=== PATIENT | male | born 1980 | race Caucasian/White ===

== ENCOUNTER 2018-09-14 10:48 | Inpatient (IN) | payer OTHER ==
[2018-09-14] MEDS ORDERED: CLINDAMYCIN 600MG PREMIX IVPB 600 MG/50 ML BAG IVPB ONE ×2 (11:33→11:51)
[2018-09-14] MEDS ORDERED: SODIUM CHLORIDE 1,000 ML IV STA (11:33)
[2018-09-14 12:00] LABS: BASO % 0.7 % (0-2.0); EOS % 0.2 % (0-4.5); HEMATOCRIT 47.1 % (35.4-49); HEMOGLOBIN 15.7 GM/dL (11.7-16.9); LYMPH % 15.3 % (8-40); MCH 30.1 pg (25.7-33.7); MCHC 33.3 g/dl (32.0-35.9); MEAN CELL VOLUME 90.3 fl (80-96); MEAN PLT VOLUME 7.7 fl (7.5-11.1); MONO % 7.4 % (3.8-10.2); NEUT % 76.4 % (42.8-82.8); PLATELET COUNT 418 K/MM3 (134-434); RBC 5.21 M/mm3 (4.00-5.60); RDW 12.9 % (11.9-15.9); WHITE BLOOD COUNT 13.1 K/mm3 (4.0-10.0)
--- NOTE | 2018-09-14 12:07 | PDOC ---
History of Present Illness - General Chief Complaint: Injury Stated Complaint: PCP SENT/PRE OP Time Seen by Provider: 09/14/18 11:22 History Source: Patient - History of Present Illness Timing/Duration: reports: getting worse Abdominal Pain Onset Location: reports: other (groin) Past History - Past Medical History Allergies/Adverse Reactions: Allergies Allergy/AdvReac Type Severity Reaction Status Date / Time No Known Allergies Allergy Verified 09/14/18 11:01 Home Medications: Ambulatory Orders Acetaminophen [Tylenol] 650 mg PO QID PRN 09/14/18 Metformin HCl [Metformin HCl ER] 500 mg PO DAILY 09/14/18 COPD: No - Suicide/Smoking/Psychosocial Hx Smoking History: Current some day smoker Have you smoked in the past 12 months: Yes Number of Cigarettes Smoked Daily: 1 Information on smoking cessation initiated: No 'Breaking Loose' booklet given: 07/19/18 Hx Alcohol Use: No Drug/Substance Use Hx: No Substance Use Type: None Review of Systems - Review of Systems Constitutional: No: Chills, Fever, Malaise : Yes: Testicular Swelling, Testicular Pain. No: Dysuria, Discharge, Hematuria *Physical Exam - Vital Signs Last Vital Signs Temp Pulse Resp BP Pulse Ox 99.5 F 117 H 18 148/99 97 09/14/18 11:03 09/14/18 11:03 09/14/18 11:03 09/14/18 11:03 09/14/18 11:03 - Physical Exam General Appearance: Yes: Appropriately Dressed. No: Apparent Distress HEENT: positive: Normal Voice Neck: positive: Supple Respiratory/Chest: negative: Respiratory Distress Gastrointestinal/Abdominal: positive: Soft. negative: Tender Male Genitalia: positive: other (7x6 cm area of fluctucant induration w/ overlying erythema to L groin, possibly extending into L testes) Integumentary: positive: Dry, Warm Neurologic: positive: Fully Oriented, Alert, Normal Mood/Affect ED Treatment Course - LABORATORY CBC & Chemistry Diagram: 09/14/18 11:38 09/14/18 11:38 - ADDITIONAL ORDERS Additional order review: Laboratory Results 09/14/18 11:38 WBC 13.1 H RBC 5.21 Hgb 15.7 Hct 47.1 MCV 90.3 MCH 30.1 MCHC 33.3 RDW 12.9 Plt Count 418 D MPV 7.7 Absolute Neuts (auto) 10.0 H Neutrophils % 76.4 Lymphocytes % 15.3 Monocytes % 7.4 Eosinophils % 0.2 Basophils % 0.7 Nucleated RBC % 0 09/14/18 11:38 RBC 5.21 MCV 90.3 MCHC 33.3 RDW 12.9 MPV 7.7 Neutrophils % 76.4 Lymphocytes % 15.3 Monocytes % 7.4 Eosinophils % 0.2 Basophils % 0.7 - RADIOLOGY Radiology Studies Ordered: Category Date Time Status ABDOMEN & PELVIS CT WITH CONTR [CT] Stat CT Scan 09/14/18 11:33 Ordered SCROTUM AND CONTENTS US [US] Stat Ultrasound 09/14/18 11:29 Ordered - Medications Given in the ED: ED Medications Discontinued Medications Generic Name Dose Route Start Last Admin Trade Name Freq PRN Reason Stop Dose Admin Clindamycin Phosphate 600 mg in 50 mls @ 100 mls/hr 09/14/18 11:33 09/14/18 11:51 Cleocin 600 Mg Premix Ivpb - IVPB 09/14/18 12:02 100 mls/hr ONCE ONE Administration Protocol Medical Decision Making - Medical Decision Making 09/14/18 12:04 38-year-old male, obesity, [id number] diabetic, admitted for sepsis secondary to RUE cellulitis/abscess [address] [facility], was dx w/ DM then w/ HA1c of 9.9 per records, here with L groin pain and swelling s/ p injury. Patient states 4 days ago while playing sports another individual accidentally struck him in the groin with knee. States he had pain immediately but thought it would go away, so did not come into ED for evaluation. Since then, symptoms have worsened. Denies fever, chills or malaise see exam Cellulitis /abscess of L groin w/ possible involvement of L testes Unlikely torsion given duration and exam findings Tachy to 117 w/ large fluctuant induration to L groin 2/ overlying erythema, possibly extension into L testes -pain control -IVF -abx (of note, prior wound cx grew out MRSA-sen to clinda) -labs -UC -CT - v/s surgery c/s -admit 09/14/18 12:16 09/14/18 14:40 CT read as ~4 x 4 cm abscess to L groin. White count of 13. Case discussed with Dr. Hendrickson of , recommended ID consult and will see in-house *DC/Admit/Observation/Transfer Diagnosis at time of Disposition: Abscess of groin, left - Discharge Dispostion Condition at time of disposition: Fair Decision to Admit order: Yes - Referrals - Patient Instructions - Post Discharge Activity
[2018-09-14 12:14] LABS: URINE APPEARANCE CLEAR; URINE BILIRUBIN NEGATIVE (<2.0 mg/dL); URINE COLOR DKYELLOW; URINE GLUCOSE (UA) 2+ (NEGATIVE); URINE KETONE NEGATIVE (NEGATIVE); URINE LEUK ESTERASE NEGATIVE (NEGATIVE); URINE NITRITE NEGATIVE (NEGATIVE); URINE PROTEIN 1+ (NEGATIVE)
[2018-09-14] MEDS ORDERED: KETOROLAC TROMETHAMINE 30 MG/1 ML VIAL IVPUSH ONE (12:17)
[2018-09-14 12:25] LABS: ALK PHOS 140 U/L (45-117); ANION GAP 10 MMOL/L (8-16); BILIRUBIN,TOTAL 1.2 mg/dL (0.2-1); BLOOD UREA NITROGEN 6 mg/dL (7-18); CALCIUM 9.5 mg/dL (8.5-10.1); CHLORIDE 100 mmol/L (98-107); CO2 25 mmol/L (21-32); CREATININE 1.2 mg/dL (0.55-1.3); GLUCOSE,RANDOM 240 mg/dL (74-106); POTASSIUM 4.1 mmol/L (3.5-5.1); SGOT/AST 47 U/L (15-37); SGPT/ALT 54 U/L (13-61); SODIUM 136 mmol/L (136-145); TOT PROT 8.4 g/dl (6.4-8.2)
[2018-09-14 12:27] LABS: INR 1.18 (0.83-1.09); PROTHROMBIN TIME (PATIENT) 13.9 SEC (9.7-13.0)
[2018-09-14 12:54] LABS: EPI CELLS RARE /HPF (FEW); URINE HYALINE CAST 17 /lpf; URINE MUCUS FEW
[2018-09-14] MEDS ORDERED: KETOROLAC TROMETHAMINE 30 MG/1 ML VIAL ONE ×2 (14:13→18:32)
[2018-09-14] MEDS ORDERED: ACETAMINOPHEN 325 MG TABLET (FP) PO PRN (16:38)
--- NOTE | 2018-09-14 16:38 | HP ---
Admitting History and Physical - Primary Care Physician PCP: Karolina Linda - Admission Chief Complaint: LEFT INGUINAL ABSCESS History of Present Illness: 38 Y/O MALE HISTORY OF DIABETES WITH 3 DAYS OF LEFT INGUINAL PAIN AND ABSCESS WORSENING. DENIES TRAUMA History Source: Patient, Medical Record - Smoking History Smoking history: Current some day smoker Have you smoked in the past 12 months: Yes Aproximately how many cigarettes per day: 1 - Alcohol/Substance Use Hx Alcohol Use: No Home Medications - Allergies Allergies/Adverse Reactions: Allergies Allergy/AdvReac Type Severity Reaction Status Date / Time No Known Allergies Allergy Verified 09/14/18 11:01 - Home Medications Home Medications: Ambulatory Orders Acetaminophen [Tylenol] 650 mg PO QID PRN 09/14/18 Metformin HCl [Metformin HCl ER] 500 mg PO DAILY 09/14/18 Review of Systems - Review of Systems Constitutional: reports: No Symptoms Eyes: reports: No Symptoms HENT: reports: No Symptoms Neck: reports: No Symptoms Cardiovascular: reports: No Symptoms Respiratory: reports: No Symptoms Gastrointestinal: reports: No Symptoms Genitourinary: reports: Other (LEFT INGUINAL ABSCESS) Musculoskeletal: reports: No Symptoms Integumentary: reports: No Symptoms Neurological: reports: No Symptoms Endocrine: reports: No Symptoms Hematology/Lymphatic: reports: No Symptoms Psychiatric: reports: No Symptoms Physical Examination Vital Signs: Vital Signs Temperature 99.5 F 09/14/18 11:03 Pulse Rate 117 H 09/14/18 11:03 Respiratory Rate 18 09/14/18 11:03 Blood Pressure 148/99 09/14/18 11:03 O2 Sat by Pulse Oximetry (%) 97 09/14/18 11:03 Constitutional: Yes: Mild Distress Eyes: Yes: WNL HENT: Yes: WNL Neck: Yes: WNL Cardiovascular: Yes: WNL Respiratory: Yes: WNL Gastrointestinal: Yes: WNL Renal/: Yes: WNL Musculoskeletal: Yes: WNL Extremities: Yes: Other (LEFT GROIN ABSCESS) Edema: No Peripheral Pulses WNL: Yes Integumentary: Yes: WNL Wound/Incision: Yes: Dressing Dry and Intact Neurological: Yes: WNL ...Motor Strength: WNL Psychiatric: Yes: WNL Labs: CBC, BMP 09/14/18 11:38 09/14/18 11:38 Problem List - Problems (1) Abscess of groin, left Code(s): L02.214 - CUTANEOUS ABSCESS OF GROIN (2) Hyperglycemia due to type 2 diabetes mellitus Code(s): E11.65 - TYPE 2 DIABETES MELLITUS WITH HYPERGLYCEMIA (3) Obesity (BMI 30-39.9) Code(s): E66.9 - OBESITY, UNSPECIFIED Assessment/Plan IV ABX I AND D WITH ID CONSULT BGM CHECK WEIGHT LOSS AND EXERCISE
--- NOTE | 2018-09-14 17:56 | CONSULT ---
Consult - text type - Consultation Consultation Note: cc: left inguinal abscess hpi: patient with 3 day history of increasing left groin swelling with erythema. Denies trauma to area. The patient denies fever or chills. Patient with history of DM. PE: VSS;abfeb abd-soft, non tender genitalia- nl phallus and testes; left inguinal fluctuant mass imp left inguinal abscess plan antibiotics as per ID procedure note incision and drainage of left inguinal absess performed 50 cc of purulent drainage expressed from absess
[2018-09-14] MEDS: KETOROLAC TROMETHAMINE 30 MG/1 ML VIAL IVPUSH SCH (18:34)
[2018-09-14] MEDS ORDERED: VANCOMYCIN 1,500 MG in DEXTROSE 5%-WATER - 500 ML IVPB ONE (20:48)
[2018-09-14] MEDS ORDERED: PIPERACILLIN/TAZOBACTAM 3.375 GM VIAL IVPB ONE (20:58)
[2018-09-14] MEDS ORDERED: DEXTROSE 5%-WATER - 50 ML IVPB ONE (20:59)
[2018-09-14] MEDS ORDERED: PIPERACILLIN/TAZOB 3.375 GM 3.375 GM in DEXTROSE 5%-WATER - 50 ML IVPB SCH (21:00)
[2018-09-14] MEDS: PIPERACILLIN/TAZOB 3.375 GM 3.375 GM in DEXTROSE 5%-WATER - 50 ML IVPB SCH (21:12)
[2018-09-15] MEDS ORDERED: PIPERACILLIN/TAZOBACTAM 3.375 GM VIAL IVPB ONE ×3 (01:20→17:44)
[2018-09-15] MEDS ORDERED: DEXTROSE 5%-WATER - 50 ML IVPB ONE ×3 (01:20→17:45)
[2018-09-15] MEDS: KETOROLAC TROMETHAMINE 30 MG/1 ML VIAL IVPUSH SCH ×2 (02:12→09:54)
[2018-09-15] MEDS: PIPERACILLIN/TAZOB 3.375 GM 3.375 GM in DEXTROSE 5%-WATER - 50 ML IVPB SCH ×3 (02:16→19:19)
[2018-09-15] MEDS ORDERED: metFORMIN HCL 500 MG TABLET (FP) PO SCH (07:00)
[2018-09-15 08:07] LABS: HEMATOCRIT 44.6 % (35.4-49); MCH 30.5 pg (25.7-33.7); MCHC 33.5 g/dl (32.0-35.9); MEAN PLT VOLUME 7.5 fl (7.5-11.1); PLATELET COUNT 351 K/MM3 (134-434); RDW 13.1 % (11.9-15.9); WHITE BLOOD COUNT 8.4 K/mm3 (4.0-10.0)
--- NOTE | 2018-09-15 08:21 | CONSULT ---
Consult - text type - Consultation Consultation Note: CC: left groin abscess HPI: Patient with history of DM s/p I+D of left groin abscess. Patient is doing well PE vss; afeb left groin abscess with mild serosanguinous/purulent drainage; no fluctuance at site imp left groin abscess plan urogically cleared for D/C on PO antibiotics when cleared by ID
[2018-09-15 08:36] LABS: ANION GAP 8 MMOL/L (8-16); BLOOD UREA NITROGEN 7 mg/dL (7-18); CALCIUM 8.7 mg/dL (8.5-10.1); CHLORIDE 99 mmol/L (98-107); CO2 29 mmol/L (21-32); CREATININE 1.1 mg/dL (0.55-1.3); GLUCOSE,RANDOM 207 mg/dL (74-106); POTASSIUM 3.9 mmol/L (3.5-5.1); SODIUM 136 mmol/L (136-145)
[2018-09-15] MEDS ORDERED: FLU VACCINE QUAD 60 MCG/0.5 ML (MDV 18-19) IM ONE (10:00)
[2018-09-15] MEDS ORDERED: PNEUMOC 13-VAL CONJ-DIP CRM/PF 0.5 ML DISP.SYRIN IM ONE (10:00)
--- NOTE | 2018-09-15 11:03 | PN ---
Progress Note, Physician Chief Complaint: patient admitted for left inguinal pain and absces s/p drainage seen by urology on iv zosyn no pain wbc count is now normal no fever ID eval pending - Current Medication List Current Medications: Active Medications Acetaminophen (Tylenol -) 650 mg PO Q6H PRN PRN Reason: FEVER Piperacillin Sod/Tazobactam (Sod 3.375 gm/ Dextrose) 50 mls @ 100 mls/hr IVPB Q8H-IV [facility]; Protocol Ketorolac Tromethamine (Toradol Injection -) 30 mg IVPUSH Q8H-IV [facility] Stop: 09/19/18 17:59 Last Admin: 09/15/18 09:54 Dose: Not Given Metformin HCl (Glucophage -) 500 mg PO DAILY@0700 [facility] Last Admin: 09/15/18 06:13 Dose: 500 mg - Objective Vital Signs: Vital Signs Temperature 97.7 F 09/15/18 10:03 Pulse Rate 89 09/15/18 10:03 Respiratory Rate 28 H 09/15/18 10:03 Blood Pressure 130/74 09/15/18 10:03 O2 Sat by Pulse Oximetry (%) 100 09/14/18 18:39 Constitutional: Yes: Calm Cardiovascular: Yes: Regular Rate and Rhythm, S1, S2 Respiratory: Yes: CTA Bilaterally Gastrointestinal: Yes: Normal Bowel Sounds, Soft Genitourinary: Yes: Other (left inguinal swelling firm not tender,small opening serosangious drainage) Edema: No Labs: CBC, BMP 09/15/18 07:00 09/15/18 07:00 INR, PTT INR 1.18 (0.83-1.09) H 09/14/18 11:38 Problem List - Problems (1) Abscess of groin, left Assessment/Plan: vanco level note hold dose s/p I/D by urology awaiting ID eval Code(s): L02.214 - CUTANEOUS ABSCESS OF GROIN
[2018-09-15] MEDS ORDERED: ACETAMINOPHEN 325 MG TABLET (FP) PO PRN (11:13)
[2018-09-15 12:16] LABS: CHOLESTEROL 217 mg/dL (50-200); HDL CHOLESTEROL 33 mg/dL (40-60); TRIGLYCERIDES 158 mg/dL (0-150)
--- NOTE | 2018-09-15 15:48 | CON.ID ---
Consult Consult Specialty:: infectious diseases Reason for Consultation:: left groin abscess - History of Present Illness Chief Complaint: pain and abscess in the left groin History of Present Illness: 38-year-old male, obesity, [id number] diabetic, admitted for sepsis secondary to RUE cellulitis/abscess 2 months ago at [facility], was dx w/ DM then w/ HA1c of 9.9 per records, here with L groin pain and swelling s/ p injury. Patient states 4 days ago while playing sports another individual accidentally struck him in the groin with knee. States he had pain immediately but thought it would go away, so did not come into ED for evaluation. Since then, symptoms have worsened. Denies fever, chills or malaise see exam patient was seen by urology and an I and d was done currently patient has pain at the site of the wound - History Source History Provided By: Patient Limitations to Obtaining History: No Limitations - Alcohol/Substance Use Hx Alcohol Use: Yes (FOR SOCIAL, OCCASIONALLY) - Smoking History Smoking history: Current some day smoker Have you smoked in the past 12 months: Yes Aproximately how many cigarettes per day: 0.5 Home Medications - Allergies Allergies/Adverse Reactions: Allergies Allergy/AdvReac Type Severity Reaction Status Date / Time No Known Allergies Allergy Verified 09/14/18 11:01 - Home Medications Home Medications: Ambulatory Orders Acetaminophen [Tylenol] 650 mg PO QID PRN 09/14/18 Amoxicillin/Potassium Clav [Augmentin 875-125 Tablet] 1 each PO BID #20 tablet MDD 2 09/16/18 RX: Clindamycin [Cleocin -] 300 mg PO TID #30 capsule MDD 3 09/16/18 RX: Sitagliptin Phosphate [Januvia -] 100 mg PO DAILY@0700 #30 tab MDD 1 RX: metFORMIN HCL [Glucophage -] 750 mg PO BID@0700,1630 #30 tablet MDD 2 Review of Systems - Review of Systems Constitutional: reports: No Symptoms Eyes: reports: No Symptoms HENT: reports: No Symptoms Neck: reports: No Symptoms Cardiovascular: reports: No Symptoms Respiratory: reports: No Symptoms Gastrointestinal: reports: No Symptoms Genitourinary: reports: Other (left groin abscess) Musculoskeletal: reports: No Symptoms Integumentary: reports: No Symptoms Neurological: reports: No Symptoms Endocrine: reports: No Symptoms Hematology/Lymphatic: reports: No Symptoms Psychiatric: reports: No Symptoms Physical Exam Vital Signs: Vital Signs Temperature 97.7 F 09/15/18 10:03 Pulse Rate 89 09/15/18 10:03 Respiratory Rate 28 H 09/15/18 10:03 Blood Pressure 130/74 09/15/18 10:03 O2 Sat by Pulse Oximetry (%) 97 09/15/18 09:00 Constitutional: Yes: Well Nourished, Calm, Mild Distress Eyes: Yes: Conjunctiva Clear HENT: Yes: Atraumatic, Normocephalic Neck: Yes: Supple, Trachea Midline Cardiovascular: Yes: Regular Rate and Rhythm Respiratory: Yes: Regular, CTA Bilaterally Gastrointestinal: Yes: Normal Bowel Sounds, Soft Renal/: Yes: Other (abscess left groin/) Extremities: Yes: WNL Wound/Incision: Yes: Clean/Dry Neurological: Yes: Alert, Oriented Labs: CBC, BMP 09/15/18 07:00 09/15/18 07:00 Imaging - Results Cat Scan: Report Reviewed, Image Reviewed Ultrasound: Report Reviewed, Image Reviewed Assessment/Plan Problem List - Problems (1) Abscess of groin, left Code(s): L02.214 - CUTANEOUS ABSCESS OF GROIN (2) Hyperglycemia due to type 2 diabetes mellitus Code(s): E11.65 - TYPE 2 DIABETES MELLITUS WITH HYPERGLYCEMIA (3) Obesity (BMI 30-39.9) Code(s): E66.9 - OBESITY, UNSPECIFIED plan continue abx await for cx reports once cx reports are there then will decide final mgmt rest as per the team
[2018-09-15] MEDS ORDERED: PT OWN MED DRAWER 7, Y5N ONE (16:19)
[2018-09-15] MEDS: INSULIN SLIDING SCALE (NOVOLOG) 1 VIAL SQ SCH ×2 (16:56→21:35)
[2018-09-15] MEDS: VANCOMYCIN 1,250 MG in DEXTROSE 5%-WATER - 250 ML IVPB SCH (17:08)
[2018-09-15] MEDS: metFORMIN HCL 500 MG TABLET (FP) PO SCH (18:16)
[2018-09-16] MEDS ORDERED: PIPERACILLIN/TAZOBACTAM 3.375 GM VIAL IVPB ONE ×2 (01:33→09:53)
[2018-09-16] MEDS ORDERED: DEXTROSE 5%-WATER - 50 ML IVPB ONE ×2 (01:33→09:53)
[2018-09-16] MEDS: PIPERACILLIN/TAZOB 3.375 GM 3.375 GM in DEXTROSE 5%-WATER - 50 ML IVPB SCH ×2 (02:02→10:23)
[2018-09-16] MEDS: INSULIN SLIDING SCALE (NOVOLOG) 1 VIAL SQ SCH ×3 (06:08→16:40)
[2018-09-16] MEDS: metFORMIN HCL 500 MG TABLET (FP) PO SCH ×2 (06:18→16:37)
[2018-09-16] MEDS ORDERED: sitaGLIPtin PHOSPHATE 100 MG TABLET (FP) PO SCH (07:00)
[2018-09-16 07:31] LABS: BASO % 0.5 % (0-2.0); EOS % 4.5 % (0-4.5); HEMOGLOBIN 14.9 GM/dL (11.7-16.9); LYMPH % 20.2 % (8-40); MCH 30.6 pg (25.7-33.7); MCHC 33.9 g/dl (32.0-35.9); MEAN CELL VOLUME 90.2 fl (80-96); MEAN PLT VOLUME 7.3 fl (7.5-11.1); MONO % 7.1 % (3.8-10.2); NEUT % 67.7 % (42.8-82.8); PLATELET COUNT 361 K/MM3 (134-434); RBC 4.87 M/mm3 (4.00-5.60); RDW 12.7 % (11.9-15.9); WHITE BLOOD COUNT 6.8 K/mm3 (4.0-10.0)
[2018-09-16 08:40] LABS: ALBUMIN 3.4 g/dl (3.4-5.0); ALK PHOS 110 U/L (45-117); ANION GAP 8 MMOL/L (8-16); BILIRUBIN,TOTAL 1.1 mg/dL (0.2-1); BLOOD UREA NITROGEN 6 mg/dL (7-18); CALCIUM 9.1 mg/dL (8.5-10.1); CHLORIDE 102 mmol/L (98-107); CO2 27 mmol/L (21-32); CREATININE 1.1 mg/dL (0.55-1.3); GLUCOSE,RANDOM 163 mg/dL (74-106); POTASSIUM 3.8 mmol/L (3.5-5.1); SGOT/AST 87 U/L (15-37); SGPT/ALT 70 U/L (13-61); SODIUM 137 mmol/L (136-145); TOT PROT 7.4 g/dl (6.4-8.2)
--- NOTE | 2018-09-16 11:50 | PN ---
Progress Note, Physician Chief Complaint: patient seen and examined on iv abx wants to go home - Current Medication List Current Medications: Active Medications Acetaminophen (Tylenol -) 650 mg PO Q6H PRN PRN Reason: PAIN LEVEL 4 - 6 Vancomycin HCl 1,250 mg/ (Dextrose) 250 mls @ 250 mls/2 hr IVPB Q24H [facility]; Protocol Last Admin: 09/15/18 17:08 Dose: 250 mls/2 hr Piperacillin Sod/Tazobactam (Sod 3.375 gm/ Dextrose) 50 mls @ 100 mls/hr IVPB Q8H-IV [facility]; Protocol Last Admin: 09/16/18 10:23 Dose: 100 mls/hr Insulin Aspart (Novolog Vial Sliding Scale -) 1 vial SQ ACHS [facility]; Protocol Last Admin: 09/16/18 06:08 Dose: Not Given Metformin HCl (Glucophage -) 750 mg PO BID@0700,1630 [facility] Last Admin: 09/16/18 06:18 Dose: 750 mg Sitagliptin Phosphate (Januvia -) 100 mg PO DAILY@0700 [facility] Last Admin: 09/16/18 06:18 Dose: 100 mg - Objective Vital Signs: Vital Signs Temperature 98.0 F 09/16/18 06:00 Pulse Rate 85 09/16/18 06:00 Respiratory Rate 20 09/16/18 06:00 Blood Pressure 102/57 L 09/16/18 06:00 O2 Sat by Pulse Oximetry (%) 97 09/15/18 09:00 Constitutional: Yes: Calm Cardiovascular: Yes: Regular Rate and Rhythm, S1, S2 Respiratory: Yes: CTA Bilaterally Gastrointestinal: Yes: Normal Bowel Sounds, Soft ...Rectal Exam: Yes: Other (left inginual abscess with serosanginous drainage no tenderness) Edema: No Neurological: Yes: Alert, Oriented Labs: CBC, BMP 09/16/18 07:08 09/16/18 07:08 INR, PTT INR 1.18 (0.83-1.09) H 09/14/18 11:38 Problem List - Problems (1) Abscess of groin, left Assessment/Plan: iv aBX PER id s/p I/D by urology Samir Code(s): L02.214 - CUTANEOUS ABSCESS OF GROIN (2) Hyperglycemia due to type 2 diabetes mellitus Assessment/Plan: metformin and januvia Code(s): E11.65 - TYPE 2 DIABETES MELLITUS WITH HYPERGLYCEMIA
--- NOTE | 2018-09-16 13:20 | PN ---
Progress Note, Physician History of Present Illness: patient doing well urology note noted patient with drained abscess from the groin left - Current Medication List Current Medications: Active Medications Acetaminophen (Tylenol -) 650 mg PO Q6H PRN PRN Reason: PAIN LEVEL 4 - 6 Vancomycin HCl 1,250 mg/ (Dextrose) 250 mls @ 250 mls/2 hr IVPB Q24H [facility]; Protocol Last Admin: 09/15/18 17:08 Dose: 250 mls/2 hr Piperacillin Sod/Tazobactam (Sod 3.375 gm/ Dextrose) 50 mls @ 100 mls/hr IVPB Q8H-IV [facility]; Protocol Last Admin: 09/16/18 10:23 Dose: 100 mls/hr Insulin Aspart (Novolog Vial Sliding Scale -) 1 vial SQ ACHS [facility]; Protocol Last Admin: 09/16/18 12:42 Dose: Not Given Metformin HCl (Glucophage -) 750 mg PO BID@0700,1630 [facility] Last Admin: 09/16/18 06:18 Dose: 750 mg Sitagliptin Phosphate (Januvia -) 100 mg PO DAILY@0700 [facility] Last Admin: 09/16/18 06:18 Dose: 100 mg - Objective Vital Signs: Vital Signs Temperature 98.0 F 09/16/18 06:00 Pulse Rate 85 09/16/18 06:00 Respiratory Rate 20 09/16/18 06:00 Blood Pressure 102/57 L 09/16/18 06:00 O2 Sat by Pulse Oximetry (%) 97 09/15/18 09:00 Constitutional: Yes: No Distress, Calm Cardiovascular: Yes: Regular Rate and Rhythm Respiratory: Yes: Regular, CTA Bilaterally Gastrointestinal: Yes: Normal Bowel Sounds, Soft Genitourinary: Yes: Other (scrotal abscess and induration left side) Musculoskeletal: Yes: WNL Extremities: Yes: WNL Neurological: Yes: Alert, Oriented Psychiatric: Yes: Alert, Oriented Labs: CBC, BMP 09/16/18 07:08 09/16/18 07:08 INR, PTT INR 1.18 (0.83-1.09) H 09/14/18 11:38 Assessment/Plan Problem List - Problems (1) Abscess of groin, left Code(s): L02.214 - CUTANEOUS ABSCESS OF GROIN (2) Hyperglycemia due to type 2 diabetes mellitus Code(s): E11.65 - TYPE 2 DIABETES MELLITUS WITH HYPERGLYCEMIA (3) Obesity (BMI 30-39.9) Code(s): E66.9 - OBESITY, UNSPECIFIED plan patient can be switched to oral augmentin 875mg po bid for 10 days clinda 300 mg q8 hrly for 10 days patient might need further drainage needs to follow with urology
--- NOTE | 2018-09-16 13:56 | DS ---
Physical Examination Vital Signs: Vital Signs Temperature 98.0 F 09/16/18 06:00 Pulse Rate 85 09/16/18 06:00 Respiratory Rate 20 09/16/18 06:00 Blood Pressure 102/57 L 09/16/18 06:00 O2 Sat by Pulse Oximetry (%) 97 09/15/18 09:00 Constitutional: Yes: Calm Cardiovascular: Yes: Regular Rate and Rhythm, S1, S2 Respiratory: Yes: CTA Bilaterally Gastrointestinal: Yes: Normal Bowel Sounds, Soft ...Rectal Exam: Yes: Other (left inguinal mass firm with serosanginous drainage) Musculoskeletal: Yes: Other Edema: No Labs: CBC, BMP 09/16/18 07:08 09/16/18 07:08 Discharge Summary Reason For Visit: ABSCESS OF LEFT GROIN Current Active Problems Abscess of groin, left (Acute) Hospital Course: Primary Care Physician PCP: Karolina Linda - Admission Chief Complaint: LEFT INGUINAL ABSCESS History of Present Illness: 38 Y/O MALE HISTORY OF DIABETES WITH 3 DAYS OF LEFT INGUINAL PAIN AND ABSCESS WORSENING. DENIES TRAUMA History Source: Patient, Medical Record - Smoking History Smoking history: Current some day smoker Have you smoked in the past 12 months: Yes Aproximately how many cigarettes per day: 1 Patient seen in hospital;and I/D by urology started on iv vanco and zosyn change to clinda and augmentin for 10 days DM on metformin and januvia Condition: Fair - Instructions Diet, Activity, Other Instructions: take augmentin and clindamycin for 10 days Referrals: Obey Hendrickson MD [Staff Physician] - 2 Weeks Disposition: HOME - Home Medications Comprehensive Discharge Medication List: Ambulatory Orders Acetaminophen [Tylenol] 650 mg PO QID PRN 09/14/18 Metformin HCl [Metformin HCl ER] 500 mg PO DAILY 09/14/18
[2018-09-16] MEDS ORDERED: PT OWN MED DRAWER 7, Y5N ONE (14:22)
[2018-09-16] MEDS: VANCOMYCIN 1,250 MG in DEXTROSE 5%-WATER - 250 ML IVPB SCH (14:27)
[2018-09-16 15:37] VITALS: BMI 33.4
[2018-09-16 15:57] VITALS: BP 131/67; PULSE 95; TEMP 98.6
[2018-09-16] MEDS ORDERED: INSULIN (LEVEMIR) 100 UNITS/ML UNITS SQ ONE (16:34)
== END 2018-09-16 17:06 | disposition home or self-care (01) | DRG 364 ==
LOC: JER 10:48 → JERBED 14:42 → J5S 20:17
PROVIDERS: ADMIT Family Medicine; ATTEND Family Medicine
PROC: 0Y963ZZ Drainage of Left Inguinal Region, Percutaneous Approach (ICD-10-PCS; principal; 2018-09-14)
DX: L02.214 Cutaneous abscess of groin (principal); E11.65 Type 2 diabetes mellitus with hyperglycemia; E66.9 Obesity, unspecified; Z68.33 Body mass index [BMI] 33.0-33.9, adult; Z79.84 Long term (current) use of oral hypoglycemic drugs
CPT/HCPCS: 36415; 74177-TC; 76870-TC; 80048; 80053; 80061; 81003; 81015; 82962; 83036; 83605; 83721; 85025; 85027; 85610; 86850; 86900; 86901; 90688; 99282-25; G0008; J7030

== ENCOUNTER 2022-10-26 16:37 | Emergency (ER) | payer OTHER ==
[2022-10-26 17:37] VITALS: BP 122/79; PULSE 90; RESP 19; TEMP 98.2; BMI 30.2
[2022-10-26 20:43] LABS: BASO % 0.2 % (0-2.0); EOS % 1.8 % (0-4.5); HEMATOCRIT 45.7 % (35.4-49); HEMOGLOBIN 15.2 GM/dL (11.7-16.9); LYMPH % 26.2 % (8-40); MCH 27.7 pg (25.7-33.7); MCHC 33.2 g/dl (32.0-35.9); MEAN CELL VOLUME 83.4 fl (80-96); MONO % 6.8 % (3.8-10.2); RBC 5.48 M/mm3 (4.00-5.60); RDW 14.6 % (11.9-15.9); WHITE BLOOD COUNT 6.4 K/mm3 (4.0-10.0)
[2022-10-26] MEDS ORDERED: IBUPROFEN 600 MG TABLET (FP) PO ONE ×2 (20:45→20:48)
[2022-10-26 20:50] LABS: CALCIUM 8.8 mg/dL (8.5-10.1)
[2022-10-26 20:51] LABS: BLOOD UREA NITROGEN 12.9 mg/dL (7-18)
[2022-10-26 20:54] LABS: CREATININE 1.1 mg/dL (0.55-1.3)
[2022-10-26 21:16] LABS: MEAN PLT VOLUME 9.6 fl (7.5-11.1); PLATELET COUNT 80 10^3/uL (134-434)
[2022-10-26] MEDS ORDERED: AMOX TR/POT CLAV 500MG/125MG TABLETS (FP) PO ONE (22:21)
[2022-10-26] MEDS ORDERED: AMOX TR/POT CLAV 500MG/125MG TABLETS (FP) ONE (22:29)
== END 2022-10-26 22:38 | disposition home or self-care (01) ==
LOC: JERFT 16:37 → JER 16:37 → JERFT 22:38
DX: K08.89 Other specified disorders of teeth and supporting structures (principal)
CPT/HCPCS: 36415; 70487-TC; 80048; 85025; 99285-25; Q9967